=== PATIENT | female | born 1995 | race Caucasian/White ===

== ENCOUNTER 2019-04-23 09:56 | Emergency (ER) | payer MEDICAID ==
[~2019-04-23] VITALS: Ht 157.5 cm; Wt 61.6 kg
[~2019-04-23 09:56] MED LIST: ACET325T33 PO; AMOX1TAB10 PO; FER325 PO; IBUP-1542 PO; PRENAT PO
[2019-04-23 09:59] VITALS: BP 119/60; PULSE 85; RESP 18; Ht 157.5 cm; Wt 61.6 kg
[2019-04-23] MEDS ORDERED: KETO5DRO71 OP (10:24)
[2019-04-23] MEDS ORDERED: BEN25 PO (10:24)
[2019-04-23] MEDS ORDERED: ACET325T33 PO (10:24)
--- NOTE | 2019-04-23 10:45 | ERD ---
ER Documentation Chief Complaint Chief Complaint rt eye redness with headache x 1 week HPI 23-year-old female presenting with redness to her right eye x1 week. Patient denies any blurry visions, loss of vision, sensitivity to light, presence of halos, floaters, pain, sensation of foreign body in the eye. Patient does say that she is had a mild throbbing headache on the right side but is nonradiating and rates the pain 4/10. Patient states the headache has been off and on for the last 5 days. Patient denies trying to take any medications for this. Patient denies any allergies to medications. Patient states her last menstrual cycle was April 04, 2019. Patient denies any allergies to medications and is not currently taking any medication. ROS All systems reviewed and are negative except as per history of present illness. Medications Home Meds Active Scripts Diphenhydramine Hcl* (Benadryl*) 25 Mg Cap, 25 MG PO Q6, #30 CAP Prov:ARSEN FORD PA-C 04/23/19 Acetaminophen* (Tylenol*) 325 Mg Tablet, 1 TAB PO Q6 PRN for PAIN AND OR ELEVATED TEMP, #20 TAB Prov:ARSEN FORD PA-C 04/23/19 Ketotifen Fumarate (ZADITOR) 5 Ml Drops, 5 ML OP TID for 7 Days, BOTTLE Prov:ARSEN FORD PA-C 04/23/19 Ibuprofen* (Motrin*) 600 Mg Tab, 600 MG PO Q8, #15 TAB Prov:INESSA PRICE MD 12/20/18 Acetaminophen* (Tylenol*) 325 Mg Tablet, 2 TAB PO Q8 PRN for PAIN AND OR ELEVATED TEMP, #20 TAB Prov:INESSA PRICE MD 12/20/18 Amoxicillin/Potassium Clav (Amox-Clav 875-125 mg Tablet) 875-125 mg Tab, 1 TAB PO BID for 7 Days, #14 TAB Prov:INESSA PRICE MD 12/20/18 Ibuprofen* (Ibuprofen*) 600 Mg Tablet, 600 MG PO Q6, #20 TAB 0 Refills Prov:NERI SUGGS MD 04/20/16 Reported Medications Ferrous Sulfate* (Ferrous Sulfate*) 325 Mg Tabec, 325 MG PO BID, TAB 04/19/16 Multivit/Min/Fol Ac/Iron/Pren* ( S*) 1 Tab Tab, 1 TAB PO DAILY, TAB 04/18/16 Allergies Allergies: Coded Allergies: No Known Allergy (Unverified , 04/18/16) PMhx/Soc Medical and Surgical Hx: pt denies Medical Hx History of Surgery: Yes (OVARIAN TUMOR REMOVED ) Anesthesia Reaction: No Hx Neurological Disorder: No Hx Respiratory Disorders: No Hx Cardiac Disorders: No Hx Psychiatric Problems: No Hx Miscellaneous Medical Probl: No Hx Alcohol Use: Yes (OCCASSIONAL) Hx Substance Use: No Hx Tobacco Use: No Smoking Status: Never smoker FmHx Family History: No diabetes, No coronary disease, No other Physical Exam Vitals Vital Signs Date Temp Pulse Resp B/P (MAP) Pulse Ox O2 O2 Flow FiO2 Time Delivery Rate 04/23/19 97.5 85 18 119/60 99 09:59 (79) Physical Exam Const: No acute distress Head: Atraumatic Eyes: Conjunctive right medial eye appears mildly erythematous, no hyphema, no discharge, patient's pupil is normal and reactive to light. Palpation to the right orbital was nontender and evoked no pain is not swollen no crepitus, erythematous, swelling noted. ENT: Normal External Ears, Nose and Mouth. Neck: Full range of motion. No meningismus. Resp: Clear to auscultation bilaterally Cardio: Regular rate and rhythm, no murmurs Pocket Snellen chart was used to assess the patient's vision. The patient had 20/25 vision in the right eye. The patient had 20/25 vision in the left eye. Procedures/MDM ED course: Pocket Snellen chart: Patient had 20/25 vision in the right eye. Patient had 20/25 vision in the left eye The patient was stable throughout the ED course. The patient and/or family informed of laboratory and diagnostic imaging results throughout the ED course. Medical decision makin-year-old female presenting with irritation to her right eye x1 week and right temporal headache throbbing and states the pain is 4/10. The patient's physical exam was unremarkable there was no pain to palpation to the right orbital there was no hyphema presently I visual acuity was unremarkable the patient denies any pain or blurry vision presence of floaters or halos around lights. The patient denies any traumatic injury area the patient denies any cough fever chills sore throat runny nose ear pain. Patient's HEENT only noted mild redness to the medial aspects of the conjunctive of the right eye. The patient has no discharge from the eye and states the eyes not itchy or painful. At this time I have low suspicion bacterial conjunctivitis, corneal abrasion, corneal ulcer, retained eye foreign body, glaucoma, periorbital cellulitis, orbital cellulitis, hordeolum, dacrocystitis, globe rupture. The patient states she has no allergies to medications. Patient is being discharged with Zaditor, acetaminophen, Benadryl. The patient was advised if symptoms worsen to return to the ER immediately. Patient was advised that she should follow-up with her primary care provider in 1 to 2 days regarding this visit. The patient had no further questions upon discharge is in agreement to the treatment plan. Prescription for home: Zaditor Acetaminophen Benadryl Discharge: At this time, patient is stable for discharge and outpatient management. I have instructed the patient to follow-up with his\her primary care physician in 1 to 2 days. I have discussed with the patient the possibility of needing to see a specialist for further work-up and imaging studies if symptoms persist. I have instructed the patient to promptly return to the ER for any new or worsening symptoms including increased pain, fever, nausea, vomiting, weakness or LOC. The patient and\or family expressed understanding of and agreement with this plan. All questions were answered. Home care instructions were provided. Disclaimer: Inadvertent spelling and grammatical errors are likely due to EHR\dictation software use and do not reflect on the overall quality of patient care. Also, please note that the electronic time recorded on the note does not necessarily reflect the actual time of the patient encounter. Departure Diagnosis: Primary Impression: Viral conjunctivitis of right eye Additional Impression: Headache Headache type: unspecified Headache chronicity pattern: unspecified pattern Intractability: not intractable Qualified Codes: R51 - Headache Condition: Stable Patient Instructions: Conjunctivitis, Allergic Referrals: [facility] YOU HAVE RECEIVED A MEDICAL SCREENING EXAM AND THE RESULTS INDICATE THAT YOU DO NOT HAVE A CONDITION THAT REQUIRES URGENT TREATMENT IN THE EMERGENCY DEPARTMENT. FURTHER EVALUATION AND TREATMENT OF YOUR CONDITION CAN WAIT UNTIL YOU ARE SEEN IN YOUR DOCTORS OFFICE WITHIN THE NEXT 1-2 DAYS. IT IS YOUR RESPONSIBILITY TO MAKE AN APPOINTMENT FOR FOLOW-UP CARE. IF YOU HAVE A PRIMARY DOCTOR --you should call your primary doctor and schedule an appointment IF YOU DO NOT HAVE A PRIMARY DOCTOR YOU CAN CALL OUR PHYSICIAN REFERRAL HOTLINE AT IF YOU CAN NOT AFFORD TO SEE A PHYSICIAN YOU CAN CHOSE FROM THE FOLLOWING [facility] [address] [facility] [address] [facility] [facility] [address] [facility] [address] [facility]. [facility] [address] [facility] [address] Additional Instructions: Call your primary care doctor TOMORROW for an appointment during the next 1-2 days.See the doctor sooner or return here if your condition worsens before your appointment time. ARSEN FORD PA-C Apr 23, 2019 10:44
== END 2019-04-23 10:46 | disposition home or self-care (01) ==
LOC: FTE 09:56
DX: B30.8 Other viral conjunctivitis (principal); R51 Headache
CPT/HCPCS: 99282